=== PATIENT | male | born 1965 | race Hispanic/Latino ===

== ENCOUNTER 2023-07-07 16:13 | Inpatient (IN) | payer OTHER ==
[~2023-07-07] VITALS: Ht 167.6 cm; Wt 76.7 kg
[~2023-07-07 16:13] MED LIST: AMLODIPINE BESYL5 MG PO; CIPRO250 MG PO; CRESTOR10 MG PO; DOXAZOSIN MESYLA2 MG PO; FINASTERIDE5 MG PO; GABAPENTIN300 MG PO; Insulin Glargine SQ; Insulin Lispro SQ; KERENDIA10 MG PO; LOSARTAN POTAS100 MG PO; SEGLUROMET 7.51 EAC1 PO; SENNA S TABLET1 EACH PO; TADALAFIL5 MG PO; TERBINAFINE HC250 MG PO; VIT D3 PO; VITAMIN D31250 MCG PO
[2023-07-07 17:32] LABS: BASOPHILS # (AUTO) 0.1 (0.0-0.1); BASOPHILS % 0.6 % (0.0-1.0); EOSINOPHILS # (AUTO) 0.2 (0.0-0.4); HEMOGLOBIN 8.4 g/dL (14.0-18.0); LYMPHOCYTES # (AUTO) 0.6 (1.0-3.2); MEAN CORPUSCULAR HEMOGLOBIN 28.7 pg (28-32); MEAN CORPUSCULAR HGB CONC 31.1 g/dL (31-35); MEAN CORPUSCULAR VOLUME 92.2 fL (81-99); MONOCYTES # (AUTO) 0.6 (0.2-0.8); MONOCYTES % 6.8 % (4.4-11.3); NEUTROPHILS # (AUTO) 6.8 (2.1-6.9); NEUTROPHILS % 83.2 % (38.7-80.0); PLATELET COUNT 302 x10e3/uL (140-360); RED BLOOD COUNT 2.93 x10e6/uL (4.3-5.7); WHITE BLOOD COUNT 8.11 x10e3/uL (4.8-10.8)
[2023-07-07 17:35] LABS: INR 0.95; PROTHROMBIN TIME 12.9 seconds (11.9-14.5)
[2023-07-07 17:36] LABS: PARTIAL THROMBOPLASTIN TIME 35.9 seconds (23.8-35.5)
[2023-07-07 17:43] LABS: ALANINE AMINOTRANSFERASE 33 IU/L (0-55); ALBUMIN 1.9 g/dL (3.5-5.0); ALBUMIN/GLOBULIN RATIO 0.5 (0.8-2.0); ALKALINE PHOSPHATASE 70 IU/L (40-150); ANION GAP 15.2 mmol/L (8-16); BILIRUBIN,TOTAL 0.3 mg/dL (0.2-1.2); BLOOD UREA NITROGEN 34 mg/dL (7-26); BUN/CREATININE RATIO 27 (6-25); CALCIUM 8.6 mg/dL (8.4-10.2); CARBON DIOXIDE 21 mmol/L (22-29); CHLORIDE 109 mmol/L (98-107); CREATINE KINASE 80 IU/L (30-200); CREATININE, SERUM 1.28 mg/dL (0.72-1.25); EST GLOMERULAR FILTRATION RATE 65 ML/MIN (>=60); GLUCOSE 209 mg/dL (74-118); MAGNESIUM 1.8 MG/DL (1.3-2.1); POTASSIUM 4.2 mmol/L (3.5-5.1); SODIUM 141 mmol/L (136-145); TOTAL PROTEIN 5.9 g/dL (6.5-8.1)
[2023-07-07] MEDS ORDERED: LIDOCAINE JELLY 2% 10ML URO-JET ONE (17:45)
[2023-07-07 17:56] LABS: TROPONIN I < 0.001 ng/mL (0-0.300)
[2023-07-07 18:06] LABS: BILIRUBIN,URINE NEGATIVE (NEGATIVE); CLARITY,URINE CLOUDY (CLEAR); COLOR,URINE AMBER (YELLOW); GLUCOSE, URINE 2+ (NEGATIVE); KETONES,URINE NEGATIVE (NEGATIVE); LEUKOCYTE ESTERASE ,URINE NEGATIVE (NEGATIVE); NITRITE,URINE NEGATIVE (NEGATIVE); PH,URINE 6 (5 - 7); PROTEIN,URINE DIPSTICK >=300 (NEGATIVE); URINE UROBILINOGEN 0.2 mg/dL (0.2 - 1)
[2023-07-07 18:12] LABS: BACTERIA,URINE MANY /HPF; EPITHELIAL CELLS,URINE FEW /LPF; RBC,URINE >50 /HPF (0-5)
[2023-07-07] MEDS: LIDOCAINE JELLY 2% 10ML URO-JET TOP ONE (18:19)
[2023-07-07] MEDS ORDERED: IOPAMIDOL 370 MG/ML 100 ML INFUS..BTL INJ ONE (18:29)
[2023-07-07] MEDS ORDERED: SODIUM CHLORIDE 0.9% 500ML 500 ML IV ONE (18:30)
[2023-07-07] MEDS ORDERED: ONDANSETRON HCL INJ 2MG/ML 2ML 2 MG/ML VIAL IV PRN (19:15)
[2023-07-07] MEDS: FUROSEMIDE INJ 10 MG/ML 4 ML VIAL IV ONE (19:34)
[2023-07-07 21:45] VITALS: BP 180/99; PULSE 87; RESP 18; TEMP 98.4; O2SAT 98
[2023-07-07 22:10] VITALS: BP 180/99; PULSE 87; RESP 21; TEMP 98.4; O2SAT 98
[2023-07-07] MEDS: HYDRALAZINE HCL 20 MG/ML VIAL IV PRN (22:26)
[2023-07-07 23:02] VITALS: PULSE 78; RESP 18; O2SAT 100
[2023-07-08] VITALS (9 sets, daily range): BP systolic 136–153; BP diastolic 81–92; PULSE 74–93; RESP 18–20; TEMP 98.6–99; O2SAT 95–98
[2023-07-08 01:31] LABS: TROPONIN I 0.011 ng/mL (0-0.300)
[2023-07-08 06:26] LABS: ALBUMIN 1.7 g/dL (3.5-5.0); ALBUMIN/GLOBULIN RATIO 0.5 (0.8-2.0); ANION GAP 10.8 mmol/L (8-16); BILIRUBIN,TOTAL 0.2 mg/dL (0.2-1.2); CREATININE, SERUM 1.19 mg/dL (0.72-1.25); POTASSIUM 3.8 mmol/L (3.5-5.1); TOTAL PROTEIN 4.9 g/dL (6.5-8.1)
[2023-07-08 06:43] LABS: TROPONIN I 0.002 ng/mL (0-0.300)
[2023-07-08 07:42] LABS: BASOPHILS % 0.4 % (0.0-1.0); EOSINOPHILS # (AUTO) 0.2 (0.0-0.4); EOSINOPHILS % 2.7 % (0.0-6.0); HEMATOCRIT 22.9 % (38.2-49.6); LYMPHOCYTES # (AUTO) 0.8 (1.0-3.2); LYMPHOCYTES % 12.5 % (18.0-39.1); MEAN CORPUSCULAR HEMOGLOBIN 28.1 pg (28-32); MEAN CORPUSCULAR VOLUME 90.5 fL (81-99); MONOCYTES # (AUTO) 0.6 (0.2-0.8); MONOCYTES % 8.6 % (4.4-11.3); NEUTROPHILS # (AUTO) 5.1 (2.1-6.9); NEUTROPHILS % 75.4 % (38.7-80.0); PLATELET COUNT 286 x10e3/uL (140-360); RED BLOOD COUNT 2.53 x10e6/uL (4.3-5.7); RED CELL DISTRIBUTION WIDTH 12.8 % (11.7-14.4); WHITE BLOOD COUNT 6.71 x10e3/uL (4.8-10.8)
[2023-07-08 07:47] LABS: HEMOGLOBIN 7.1 g/dL (14.0-18.0)
[2023-07-08] MEDS: INSULIN LISPRO 100 UNIT/1 ML 3ML VIAL SQ SCH (12:23)
[2023-07-08] MEDS: FUROSEMIDE 20 MG TAB PO SCH (17:30)
[2023-07-08] MEDS: INSULIN GLARGINE 100 UNITS/ML VIAL SQ SCH (17:35)
[2023-07-08] MEDS: ACETAMINOPHEN 325 MG TAB PO PRN (21:11)
[2023-07-09] VITALS (8 sets, daily range): BP systolic 155–178; BP diastolic 89–96; PULSE 83–94; RESP 18–20; TEMP 97.5–99; O2SAT 97–100
[2023-07-09 05:59] LABS: ANION GAP 12.1 mmol/L (8-16); CALCIUM 8.3 mg/dL (8.4-10.2); CREATININE, SERUM 1.65 mg/dL (0.72-1.25); POTASSIUM 4.1 mmol/L (3.5-5.1)
[2023-07-09 10:08] LABS: BASOPHILS % 0.4 % (0.0-1.0); EOSINOPHILS # (AUTO) 0.2 (0.0-0.4); EOSINOPHILS % 3.1 % (0.0-6.0); HEMATOCRIT 24.4 % (38.2-49.6); HEMOGLOBIN 7.4 g/dL (14.0-18.0); LYMPHOCYTES % 14.8 % (18.0-39.1); MEAN CORPUSCULAR HEMOGLOBIN 27.9 pg (28-32); MEAN CORPUSCULAR HGB CONC 30.3 g/dL (31-35); MEAN CORPUSCULAR VOLUME 92.1 fL (81-99); MONOCYTES # (AUTO) 0.7 (0.2-0.8); NEUTROPHILS # (AUTO) 4.8 (2.1-6.9); NEUTROPHILS % 71.4 % (38.7-80.0); PLATELET COUNT 303 x10e3/uL (140-360); RED BLOOD COUNT 2.65 x10e6/uL (4.3-5.7); RED CELL DISTRIBUTION WIDTH 12.9 % (11.7-14.4)
[2023-07-09] MEDS: SODIUM CHLORIDE 0.9% 250ML 250 ML IV ONE (16:22)
[2023-07-09] MEDS: NIFEDIPINE CR 30 MG TAB PO ONE (17:14)
[2023-07-10] VITALS (13 sets, daily range): BP systolic 139–170; BP diastolic 84–93; PULSE 83–95; RESP 16–20; TEMP 97.7–98.6; O2SAT 93–97
[2023-07-10] MEDS: TRAMADOL HCL 50 MG TAB PO PRN (00:14)
[2023-07-10] MEDS: FUROSEMIDE INJ 10 MG/ML 2 ML VIAL IV PRN (03:40)
[2023-07-10 06:19] LABS: ANION GAP 13.6 mmol/L (8-16); CALCIUM 8.3 mg/dL (8.4-10.2); CREATININE, SERUM 1.41 mg/dL (0.72-1.25); POTASSIUM 3.6 mmol/L (3.5-5.1)
[2023-07-10] MEDS: NIFEDIPINE CR 30 MG TAB PO SCH (08:30)
[2023-07-10] MEDS: SODIUM CHLORIDE 0.9% 250ML 250 ML ONE (08:31)
[2023-07-10 10:21] LABS: CREATININE,URINE RANDOM 48.79 mg/dL (63-166)
[2023-07-10 10:23] LABS: TOTAL PROTEIN, URINE 256.7 mg/dL (1-14)
[2023-07-10 10:24] LABS: TOTAL PROTEIN 24HR, URINE 11808.2 mg/24hr (50-100)
[2023-07-10] MEDS ORDERED: ONDANSETRON HCL 4 MG ORAL DISINTEGRATING TAB PO PRN (16:30)
[2023-07-10] MEDS: NIFEDIPINE CR 30 MG TAB PO ONE (18:02)
[2023-07-10 18:07] LABS: CREATININE,URINE RANDOM 46.4 mg/dL (63-166)
[2023-07-10] MEDS ORDERED: ROSUVASTATIN CA20 MG PO (18:13)
[2023-07-10] MEDS ORDERED: GABAPENTIN400 MG PO (18:13)
[2023-07-10] MEDS ORDERED: NOVOLOG100 UNITS1 SQ (18:13)
[2023-07-10] MEDS ORDERED: AMLODIPINE BESYL5 MG PO (18:13)
[2023-07-10] MEDS ORDERED: LANTUS 3ML100 UNITS/ SQ (18:13)
[2023-07-10 18:21] LABS: TOTAL PROTEIN, URINE 429.8 mg/dL (1-14)
[2023-07-11] VITALS (8 sets, daily range): BP systolic 103–162; BP diastolic 57–93; PULSE 59–88; RESP 18–21; TEMP 97.6–98.5; O2SAT 96–99
[2023-07-11 05:59] LABS: BASOPHILS % 0.3 % (0.0-1.0); EOSINOPHILS # (AUTO) 0.3 (0.0-0.4); EOSINOPHILS % 4.2 % (0.0-6.0); HEMATOCRIT 31.9 % (38.2-49.6); HEMOGLOBIN 10.3 g/dL (14.0-18.0); LYMPHOCYTES # (AUTO) 0.8 (1.0-3.2); LYMPHOCYTES % 10.7 % (18.0-39.1); MEAN CORPUSCULAR HEMOGLOBIN 28.2 pg (28-32); MEAN CORPUSCULAR HGB CONC 32.3 g/dL (31-35); MEAN CORPUSCULAR VOLUME 87.4 fL (81-99); MONOCYTES # (AUTO) 0.6 (0.2-0.8); MONOCYTES % 7.8 % (4.4-11.3); NEUTROPHILS # (AUTO) 5.7 (2.1-6.9); NEUTROPHILS % 76.6 % (38.7-80.0); PLATELET COUNT 193 x10e3/uL (140-360); RED BLOOD COUNT 3.65 x10e6/uL (4.3-5.7); RED CELL DISTRIBUTION WIDTH 13.2 % (11.7-14.4); WHITE BLOOD COUNT 7.39 x10e3/uL (4.8-10.8)
[2023-07-11 06:24] LABS: CALCIUM 8.6 mg/dL (8.4-10.2); CREATININE, SERUM 1.59 mg/dL (0.72-1.25)
[2023-07-11 07:57] LABS: TOTAL PROTEIN, URINE 653.7 mg/dL (1-14)
[2023-07-11] MEDS: NIFEDIPINE CR 30 MG TAB PO SCH (09:30)
[2023-07-11] MEDS: CEPACOL SORE THROAT LOZENGES PO PRN (10:34)
[2023-07-12] VITALS (8 sets, daily range): BP systolic 138–168; BP diastolic 86–97; PULSE 82–89; RESP 16–20; TEMP 98.1–98.6; O2SAT 95–99
[2023-07-12 06:16] LABS: CALCIUM 8.2 mg/dL (8.4-10.2); CREATININE, SERUM 1.42 mg/dL (0.72-1.25)
[2023-07-12 07:20] LABS: COMPLEMENT C3 199 mg/dL (82-167)
[2023-07-12 07:46] LABS: COMPLEMENT C4 37 mg/dL (12-38)
[2023-07-12] MEDS: HYDROCODONE/APAP 7.5MG-325MG 1 EA TAB PO PRN (11:28)
[2023-07-12 12:04] LABS: ANTI DNA DS ANTIBODY 1 IU/mL (0-9)
[2023-07-12] MEDS: LISINOPRIL 10 MG TAB PO ONE (15:57)
[2023-07-12] MEDS: FUROSEMIDE 40 MG TAB PO SCH (17:14)
[2023-07-13] VITALS (8 sets, daily range): BP systolic 128–162; BP diastolic 78–89; PULSE 72–88; RESP 18–19; TEMP 97.8–98.6; O2SAT 97–100
[2023-07-13 07:53] LABS: BASOPHILS % 0.3 % (0.0-1.0); EOSINOPHILS # (AUTO) 0.2 (0.0-0.4); EOSINOPHILS % 3.4 % (0.0-6.0); HEMATOCRIT 29.2 % (38.2-49.6); HEMOGLOBIN 9.1 g/dL (14.0-18.0); LYMPHOCYTES # (AUTO) 0.8 (1.0-3.2); LYMPHOCYTES % 10.7 % (18.0-39.1); MEAN CORPUSCULAR HEMOGLOBIN 27.9 pg (28-32); MEAN CORPUSCULAR HGB CONC 31.2 g/dL (31-35); MEAN CORPUSCULAR VOLUME 89.6 fL (81-99); MONOCYTES # (AUTO) 0.7 (0.2-0.8); MONOCYTES % 9.6 % (4.4-11.3); NEUTROPHILS # (AUTO) 5.4 (2.1-6.9); NEUTROPHILS % 75.7 % (38.7-80.0); PLATELET COUNT 314 x10e3/uL (140-360); RED BLOOD COUNT 3.26 x10e6/uL (4.3-5.7); RED CELL DISTRIBUTION WIDTH 12.6 % (11.7-14.4); WHITE BLOOD COUNT 7.09 x10e3/uL (4.8-10.8)
[2023-07-13 08:16] LABS: ANION GAP 14.3 mmol/L (8-16); CALCIUM 8.4 mg/dL (8.4-10.2); CREATININE, SERUM 1.51 mg/dL (0.72-1.25); POTASSIUM 4.3 mmol/L (3.5-5.1)
[2023-07-13] MEDS: LISINOPRIL 10 MG TAB PO SCH (08:47)
[2023-07-14] VITALS: BP 130/77; PULSE 81; RESP 18; TEMP 98.2; O2SAT 100
[2023-07-14] MEDS: ENOXAPARIN 30 MG/0.3 ML SYR SC SCH (00:50)
[2023-07-14 04:00] VITALS: BP 149/80; PULSE 81; RESP 18; TEMP 99.7; O2SAT 99
[2023-07-14 05:53] LABS: ANION GAP 11.8 mmol/L (8-16); CALCIUM 8.4 mg/dL (8.4-10.2); CREATININE, SERUM 1.39 mg/dL (0.72-1.25); POTASSIUM 3.8 mmol/L (3.5-5.1)
[2023-07-14 08:24] VITALS: BP 158/81; PULSE 90; RESP 19; TEMP 97.9; O2SAT 98
[2023-07-14 09:24] VITALS: BP 158/81; PULSE 90; RESP 19; TEMP 97.9; O2SAT 98
[2023-07-14 12:29] VITALS: BP 150/96; PULSE 89; RESP 19; TEMP 97.9; O2SAT 100
[2023-07-14 16:27] VITALS: BP 150/82; PULSE 87; RESP 19; TEMP 98.3; O2SAT 95
[2023-07-14] MEDS: LISINOPRIL 10 MG TAB PO SCH (17:06)
[2023-07-14] MEDS: DIPHENHYDRAMINE HCL 25 MG CAP PO PRN (18:26)
[2023-07-15] VITALS (8 sets, daily range): BP systolic 135–163; BP diastolic 69–93; PULSE 83–89; RESP 17–20; TEMP 98.2–98.4; O2SAT 95–100
[2023-07-15 06:38] LABS: ANION GAP 13.1 mmol/L (8-16); CALCIUM 8.3 mg/dL (8.4-10.2); CREATININE, SERUM 1.58 mg/dL (0.72-1.25); POTASSIUM 4.1 mmol/L (3.5-5.1)
[2023-07-15 11:36] LABS: BASOPHILS % 0.4 % (0.0-1.0); EOSINOPHILS # (AUTO) 0.3 (0.0-0.4); EOSINOPHILS % 4.4 % (0.0-6.0); HEMATOCRIT 29.4 % (38.2-49.6); HEMOGLOBIN 9.1 g/dL (14.0-18.0); LYMPHOCYTES # (AUTO) 0.8 (1.0-3.2); LYMPHOCYTES % 10.4 % (18.0-39.1); MEAN CORPUSCULAR VOLUME 90.5 fL (81-99); MONOCYTES # (AUTO) 0.8 (0.2-0.8); MONOCYTES % 10.2 % (4.4-11.3); NEUTROPHILS # (AUTO) 5.6 (2.1-6.9); NEUTROPHILS % 74.3 % (38.7-80.0); PLATELET COUNT 366 x10e3/uL (140-360); RED BLOOD COUNT 3.25 x10e6/uL (4.3-5.7); RED CELL DISTRIBUTION WIDTH 12.8 % (11.7-14.4); WHITE BLOOD COUNT 7.47 x10e3/uL (4.8-10.8)
[2023-07-15] MEDS: GABAPENTIN 400 MG CAP PO SCH (14:36)
[2023-07-16] VITALS (8 sets, daily range): BP systolic 135–159; BP diastolic 83–91; PULSE 74–88; RESP 17–20; TEMP 97.6–98.3; O2SAT 96–100
[2023-07-16 06:36] LABS: ANION GAP 12.1 mmol/L (8-16); CALCIUM 8.5 mg/dL (8.4-10.2); CREATININE, SERUM 1.62 mg/dL (0.72-1.25); POTASSIUM 4.1 mmol/L (3.5-5.1)
[2023-07-16] MEDS: LISINOPRIL 20 MG TAB PO SCH (16:47)
[2023-07-17 00:13] VITALS: BP 140/86; PULSE 81; RESP 20; TEMP 97.8; O2SAT 99
[2023-07-17 04:00] VITALS: BP 134/86; PULSE 78; RESP 20; TEMP 98; O2SAT 98
[2023-07-17 06:29] LABS: ANION GAP 13.3 mmol/L (8-16); CALCIUM 8.2 mg/dL (8.4-10.2); CREATININE, SERUM 1.33 mg/dL (0.72-1.25); POTASSIUM 4.3 mmol/L (3.5-5.1)
[2023-07-17 08:00] VITALS: BP 144/89; PULSE 75; RESP 19; TEMP 98.4; O2SAT 97
[2023-07-17 12:00] VITALS: BP 144/83; PULSE 77; RESP 18; TEMP 98.5; O2SAT 98
[2023-07-17 16:00] VITALS: BP 148/87; PULSE 78; RESP 19; TEMP 98.6; O2SAT 96
[2023-07-17] MEDS: LACTULOSE SYRUP 20 GM/30 ML UDC PO PRN (17:26)
[2023-07-17 20:00] VITALS: BP 150/86; PULSE 83; RESP 17; TEMP 98; O2SAT 95
[2023-07-18] VITALS (8 sets, daily range): BP systolic 119–154; BP diastolic 76–86; PULSE 77–85; RESP 16–20; TEMP 97.9–98.4; O2SAT 96–100
[2023-07-18 06:09] LABS: BASOPHILS % 0.5 % (0.0-1.0); EOSINOPHILS # (AUTO) 0.3 (0.0-0.4); EOSINOPHILS % 5.3 % (0.0-6.0); HEMATOCRIT 25.6 % (38.2-49.6); HEMOGLOBIN 8.5 g/dL (14.0-18.0); LYMPHOCYTES # (AUTO) 0.9 (1.0-3.2); LYMPHOCYTES % 13.9 % (18.0-39.1); MEAN CORPUSCULAR HEMOGLOBIN 28.1 pg (28-32); MEAN CORPUSCULAR HGB CONC 33.2 g/dL (31-35); MEAN CORPUSCULAR VOLUME 84.8 fL (81-99); MONOCYTES # (AUTO) 0.6 (0.2-0.8); MONOCYTES % 8.9 % (4.4-11.3); NEUTROPHILS # (AUTO) 4.6 (2.1-6.9); NEUTROPHILS % 70.8 % (38.7-80.0); PLATELET COUNT 363 x10e3/uL (140-360); RED BLOOD COUNT 3.02 x10e6/uL (4.3-5.7); RED CELL DISTRIBUTION WIDTH 12.6 % (11.7-14.4); WHITE BLOOD COUNT 6.42 x10e3/uL (4.8-10.8)
[2023-07-18 06:40] LABS: ANION GAP 12.2 mmol/L (8-16); CALCIUM 8.5 mg/dL (8.4-10.2); CREATININE, SERUM 1.45 mg/dL (0.72-1.25); POTASSIUM 4.2 mmol/L (3.5-5.1)
[2023-07-19] VITALS: BP 134/85; PULSE 77; RESP 18; TEMP 98.2; O2SAT 97
[2023-07-19 04:00] VITALS: BP 109/83; PULSE 77; RESP 17; TEMP 98.2; O2SAT 100
[2023-07-19 06:02] LABS: BASOPHILS % 0.3 % (0.0-1.0); EOSINOPHILS # (AUTO) 0.3 (0.0-0.4); EOSINOPHILS % 4.7 % (0.0-6.0); HEMATOCRIT 25.3 % (38.2-49.6); HEMOGLOBIN 8.4 g/dL (14.0-18.0); MEAN CORPUSCULAR HEMOGLOBIN 28.4 pg (28-32); MEAN CORPUSCULAR HGB CONC 33.2 g/dL (31-35); MEAN CORPUSCULAR VOLUME 85.5 fL (81-99); MONOCYTES # (AUTO) 0.6 (0.2-0.8); MONOCYTES % 9.5 % (4.4-11.3); NEUTROPHILS # (AUTO) 4.2 (2.1-6.9); NEUTROPHILS % 69.2 % (38.7-80.0); PLATELET COUNT 351 x10e3/uL (140-360); RED BLOOD COUNT 2.96 x10e6/uL (4.3-5.7); RED CELL DISTRIBUTION WIDTH 12.7 % (11.7-14.4); WHITE BLOOD COUNT 6.01 x10e3/uL (4.8-10.8)
[2023-07-19 06:58] LABS: FERRITIN 210.6 ng/mL (21.81-274.66)
[2023-07-19 07:16] LABS: INR 0.99; PROTHROMBIN TIME 13.3 seconds (11.9-14.5)
[2023-07-19 08:00] VITALS: BP 142/84; PULSE 73; RESP 17; TEMP 97.9
[2023-07-19] MEDS ORDERED: FENTANYL CITRATE/PF 100MCG/2 ML INJ ONE (08:19)
[2023-07-19] MEDS ORDERED: SODIUM CHLORIDE 0.9% 250ML 250 ML ONE (08:19)
[2023-07-19] MEDS ORDERED: MIDAZOLAM HCL 2 MG/2 ML VIAL ONE (08:19)
[2023-07-19 09:00] VITALS: BP 148/86; PULSE 70; RESP 17; TEMP 97.9; O2SAT 100
[2023-07-19] MEDS: HYDRALAZINE HCL 20 MG/ML VIAL ONE (12:05)
[2023-07-19 15:46] VITALS: BP 173/94; PULSE 85; RESP 18; TEMP 98; O2SAT 100
[2023-07-19 20:00] VITALS: BP 157/84; PULSE 85; RESP 18; TEMP 98.5; O2SAT 94
[2023-07-20] VITALS (7 sets, daily range): BP systolic 135–143; BP diastolic 80–89; PULSE 80–88; RESP 16–18; TEMP 97.9–98.7; O2SAT 100
[2023-07-20 07:25] LABS: BASOPHILS % 0.5 % (0.0-1.0); EOSINOPHILS # (AUTO) 0.3 (0.0-0.4); HEMATOCRIT 24.1 % (38.2-49.6); LYMPHOCYTES # (AUTO) 0.9 (1.0-3.2); LYMPHOCYTES % 13.9 % (18.0-39.1); MEAN CORPUSCULAR HEMOGLOBIN 28.3 pg (28-32); MEAN CORPUSCULAR HGB CONC 33.2 g/dL (31-35); MEAN CORPUSCULAR VOLUME 85.2 fL (81-99); MONOCYTES # (AUTO) 0.6 (0.2-0.8); MONOCYTES % 9.6 % (4.4-11.3); NEUTROPHILS # (AUTO) 4.7 (2.1-6.9); NEUTROPHILS % 71.7 % (38.7-80.0); PLATELET COUNT 347 x10e3/uL (140-360); RED BLOOD COUNT 2.83 x10e6/uL (4.3-5.7); RED CELL DISTRIBUTION WIDTH 12.5 % (11.7-14.4); WHITE BLOOD COUNT 6.57 x10e3/uL (4.8-10.8)
[2023-07-20] MEDS ORDERED: LACTULOSE20 GM/30 M PO (13:52)
[2023-07-20] MEDS ORDERED: ONDANSETRON ODT4 MG PO (13:52)
[2023-07-20] MEDS ORDERED: Diphenhydramine Hcl PO (13:52)
[2023-07-20] MEDS ORDERED: Insulin Glargine SQ (13:52)
[2023-07-20] MEDS ORDERED: NIFEDIPINE ER30 M1 PO (13:52)
[2023-07-20] MEDS ORDERED: FUROSEMIDE40 MG PO (13:52)
[2023-07-20] MEDS ORDERED: LISINOPRIL20 MG PO (13:52)
[2023-07-20] MEDS: FUROSEMIDE INJ 10 MG/ML 4 ML VIAL IV ONE (16:42)
[2023-07-20] MEDS ORDERED: DEXTROSE 50% SYRINGE 50 ML IV ONE (20:13)
== END 2023-07-20 18:14 | disposition home or self-care (01) | DRG 640 ==
LOC: ER 16:58 → ERHOLD 19:01 → MED/SURG3 21:59
PROVIDERS: ADMIT Internal Medicine; ATTEND Internal Medicine
PROC: 30233N1 Transfusion of Nonautologous Red Blood Cells into Peripheral Vein, Percutaneous Approach (ICD-10-PCS; 2023-07-09)
PROC: 0TB13ZX Excision of Left Kidney, Percutaneous Approach, Diagnostic (ICD-10-PCS; principal; 2023-07-19)
PROC: BT42ZZZ Ultrasonography of Left Kidney (ICD-10-PCS; 2023-07-19)
DX: E87.70 Fluid overload, unspecified (principal); N17.0 Acute kidney failure with tubular necrosis; J81.1 Chronic pulmonary edema; J90 Pleural effusion, not elsewhere classified; N39.0 Urinary tract infection, site not specified; J98.11 Atelectasis; E11.21 Type 2 diabetes mellitus with diabetic nephropathy; R31.0 Gross hematuria; N48.89 Other specified disorders of penis; N50.89 Other specified disorders of the male genital organs; R33.9 Retention of urine, unspecified; E11.22 Type 2 diabetes mellitus with diabetic chronic kidney disease; I12.9 Hypertensive chronic kidney disease with stage 1 through stage 4 chronic kidney disease, or unspecified chronic kidney disease; N18.32 Chronic kidney disease, stage 3b; E11.65 Type 2 diabetes mellitus with hyperglycemia; E11.319 Type 2 diabetes mellitus with unspecified diabetic retinopathy without macular edema; Z79.4 Long term (current) use of insulin; N05.8 Unspecified nephritic syndrome with other morphologic changes; E83.51 Hypocalcemia; Z90.79 Acquired absence of other genital organ(s); Z71.3 Dietary counseling and surveillance; Z68.27 Body mass index [BMI] 27.0-27.9, adult; Z11.52 Encounter for screening for COVID-19; E88.09 Other disorders of plasma-protein metabolism, not elsewhere classified; D64.9 Anemia, unspecified; L81.9 Disorder of pigmentation, unspecified; Z96.0 Presence of urogenital implants; Z46.6 Encounter for fitting and adjustment of urinary device; R31.29 Other microscopic hematuria; Z79.899 Other long term (current) drug therapy
CPT/HCPCS: 36415; 50200; 71045; 74177; 74470; 76942; 80048; 80053; 81001; 81050; 82550; 82570; 82728; 82948; 83540; 83735; 83880; 84156; 84466; 84484; 85025; 85610; 85730; 86039; 86160; 86225; 86850; 86900; 86920; 87086; 93005; 94799; 99152; 99252; 99284; J0360; J0696; J1650; J1940; J2250; J7050; J7799; P9016; Q9967; U0002